=== PATIENT | female | born 1935 | race Hispanic/Latino ===

== ENCOUNTER 2017-08-29 11:06 | Observation (INO) | payer OTHER, MEDICARE ==
[~2017-08-29] VITALS: Ht 160 cm; Wt 61.0 kg
[~2017-08-29 11:06] MED LIST: AMLO5TAB2 PO; ANAS1TAB7 PO; ASPI-555 PO; CLON0.1T PO; CLOP75TA32 PO; CYAN1TAB55 SL; DOCU-116 PO; FOLI-74 PO; FURO20TA4 PO; GABA-529 PO; GLIP1TAB6 PO; HYDR12.54 PO; ISOS30TA6 PO; LABE100T PO; LISI40TA4 PO; METO50TA18 PO; NITR1PAT6 TD; OMEP40CA37 PO; PARO10TA71 PO; SIMV10TA6 PO; SULF1TAB42 PO
[2017-08-29] MEDS ORDERED: SODIUM CHLORIDE 0.9% 1000ML 1,000 ML IV ONE ×2 (11:43→23:43)
[2017-08-29 11:48] LABS: BASOPHILS % (AUTO) 0.4 % (0.0-5.0); EOSINOPHILS % (AUTO) 0.9 % (0.0-8.0); HEMATOCRIT 34.4 % (36-48); LYMPHOCYTES % (AUTO) 16.8 % (21.0-51.0); MEAN CORPUSCULAR HEMOGLOBIN 28.7 pg (27.0-33.0); MEAN CORPUSCULAR HGB CONC 33.2 g/dL (32.0-36.0); MEAN CORPUSCULAR VOLUME 86.5 fL (79-99); NEUTROPHILS % (AUTO) 74.9 % (40.0-77.0); PLATELET COUNT (AUTO) 231 K/uL (130-400); RED BLOOD CELL COUNT(AUTO) 3.98 MIL/uL (4.00-5.50); RED CELL DISTRIBUTION WIDTH 14.6 % (11.0-15.5); WHITE BLOOD COUNT (AUTO) 8.4 K/uL (4.8-10.8)
[2017-08-29 12:06] LABS: BILIRUBIN,TOTAL 0.4 mg/dL (0.2-1.0); POTASSIUM 4.8 mmol/L (3.5-5.1); TOTAL PROTEIN, SERUM 7.1 g/dL (6.0-8.3)
[2017-08-29 12:09] LABS: APPEARANCE,URINE Cloudy (CLEAR); BILIRUBIN,URINE Negative (NEGATIVE); COLOR,URINE Dark Yellow (YELLOW); GLUCOSE, URINE (UA) >=1000 mg/dL (NEGATIVE); KETONES,URINE Negative (NEGATIVE); LEUKOCYTE ESTERASE ,URINE Moderate (NEGATIVE); NITRATE,URINE Negative (NEGATIVE); OCCULT BLOOD,URINE Negative (NEGATIVE); PROTEIN,URINE Trace (NEGATIVE)
[2017-08-29 12:49] LABS: RBC,URINE 0-1 /HPF (0-1)
[2017-08-29 12:51] LABS: BACTERIA,URINE Many /HPF (None Seen); SQUAMOUS EPITHELIAL CELL,UR Rare /HPF (0-2)
[2017-08-29] MEDS ORDERED: CEFTRIAXONE SODIUM 1 GM ONE (13:12)
[2017-08-29] MEDS ORDERED: INSULIN HUMULIN R 100 UNIT/ML 3ML ONE ×2 (13:15→17:57)
[2017-08-29] MEDS ORDERED: SODIUM CHLORIDE 0.9% 0 ML IV ONE (13:15)
[2017-08-29 22:40] VITALS: BP 151/63
[2017-08-30] MEDS ORDERED: ACETAMINOPHEN 325 MG TAB PO PRN
[2017-08-30] MEDS ORDERED: POTASSIUM CHLORIDE 20 MEQ ERTAB PO PRN
[2017-08-30] MEDS ORDERED: POTASSIUM CHLORIDE 20MEQ/100ML 100 ML IV PRN
[2017-08-30] MEDS ORDERED: DEXTROSE 50%-WATER 50 ML DISP.SYRIN IV PRN
[2017-08-30] MEDS ORDERED: ONDANSETRON HCL MDV 20ML 2 MG/ML VIAL IVP PRN
[2017-08-30] MEDS ORDERED: GLUCAGON 1MG KIT 1 MG ML IM PRN
[2017-08-30] MEDS ORDERED: POTASSIUM CHLORIDE 10% ELIXIR 20 MEQ/15 ML UDCUP PO PRN
[2017-08-30] MEDS ORDERED: LIDOCAINE HCL-MPF 1% 2ML VIAL IVP PRN
[2017-08-30] MEDS ORDERED: SODIUM CHLORIDE 0.9% 1000ML 1,000 ML IV SCH (00:15)
[2017-08-30] MEDS: CEFTRIAXONE SODIUM 1 GM IVP SCH ×2 (01:00→16:29)
[2017-08-30] MEDS ORDERED: CARV25TA PO (03:43)
[2017-08-30] MEDS ORDERED: CLON0.1T PO (03:43)
[2017-08-30] MEDS ORDERED: CILO50TA PO (03:43)
[2017-08-30] MEDS ORDERED: CLON0.2T PO (03:43)
[2017-08-30] MEDS ORDERED: MONT10TA24 PO (03:43)
[2017-08-30] MEDS ORDERED: AMLO10TA2 PO (03:43)
[2017-08-30] MEDS ORDERED: LEVO25TA54 PO (03:43)
[2017-08-30 04:10] VITALS: BP 167/70
[2017-08-30] MEDS: INSULIN HUMULIN R 100 UNIT/ML 3ML SQ SCH ×3 (05:50→16:29)
[2017-08-30 05:54] LABS: HEMOGLOBIN A1C 12.2 % (4.0-6.0)
[2017-08-30 08:15] VITALS: BP 169/61
[2017-08-30 11:00] VITALS: BP 189/70
[2017-08-30] MEDS ORDERED: CEFU500T67 PO (12:47)
[2017-08-30] MEDS: GLIPIZIDE 5 MG TABLET PO SCH ×2 (13:00→16:25)
[2017-08-30] MEDS: SODIUM CHLORIDE 0.9% 1000ML 1,000 ML IV SCH ×2 (13:20)
[2017-08-30 13:21] LABS: CREATININE 1.5 mg/dL (0.5-1.5); POTASSIUM 4.3 mmol/L (3.5-5.1)
[2017-08-30 16:00] VITALS: BP 146/59
[2017-08-30] MEDS ORDERED: CILOSTAZOL 100 MG TAB PO SCH (16:30)
[2017-08-30] MEDS ORDERED: METFORMIN HCL 500 MG TABLET PO SCH (21:00)
[2017-08-30] MEDS ORDERED: CARVEDILOL 25 MG TABLET PO SCH (21:00)
[2017-08-30] MEDS ORDERED: MONTELUKAST SODIUM 10 MG TAB PO SCH (21:00)
[2017-08-30] MEDS ORDERED: CLONIDINE HCL 0.2 MG TABLET PO SCH (21:00)
[2017-08-31] MEDS ORDERED: LEVOTHYROXINE 25 MCG TABLET PO SCH (07:30)
[2017-08-31] MEDS ORDERED: ISOSORBIDE MONO 30MG TAB SR PO SCH (09:00)
[2017-08-31] MEDS ORDERED: ASPIRIN 81 MG EC TAB PO SCH (09:00)
[2017-08-31] MEDS ORDERED: CLONIDINE HCL 0.1 MG TABLET PO SCH (09:00)
[2017-08-31] MEDS ORDERED: PAROXETINE HCL 20 MG TABLET PO SCH (09:00)
[2017-08-31] MEDS ORDERED: AMLODIPINE BESYLATE 5 MG TAB PO SCH (09:00)
[2017-08-31] MEDS ORDERED: CLOPIDOGREL BISULFATE 75 MG TAB PO SCH (09:00)
[2017-08-31] MEDS ORDERED: GLIPIZIDE 5 MG TABLET PO SCH (21:00)
[2017-09-19] MEDS ORDERED: SPIR25TA4 PO (14:46)
== END 2017-08-30 18:00 | disposition home or self-care (01) ==
LOC: EDH 11:06 → EDHIP 15:00 → 4BH 21:33
PROVIDERS: ADMIT Internal Medicine; ATTEND Internal Medicine
DX: N39.0 Urinary tract infection, site not specified (principal); E11.65 Type 2 diabetes mellitus with hyperglycemia; E11.22 Type 2 diabetes mellitus with diabetic chronic kidney disease; I12.9 Hypertensive chronic kidney disease with stage 1 through stage 4 chronic kidney disease, or unspecified chronic kidney disease; N17.9 Acute kidney failure, unspecified; N18.9 Chronic kidney disease, unspecified; E87.1 Hypo-osmolality and hyponatremia; E78.5 Hyperlipidemia, unspecified; E03.9 Hypothyroidism, unspecified; I25.10 Atherosclerotic heart disease of native coronary artery without angina pectoris; Z85.3 Personal history of malignant neoplasm of breast; Z90.13 Acquired absence of bilateral breasts and nipples; Z95.1 Presence of aortocoronary bypass graft; Z82.49 Family history of ischemic heart disease and other diseases of the circulatory system; Z90.49 Acquired absence of other specified parts of digestive tract
CPT/HCPCS: 36415 ×2; 70450; 80048; 80053; 81001; 82948 ×7; 83036; 84443; 84484; 85025; 87088; 87186; 93005; 96372; 99285; A4218; G0378 ×27; J0696 ×2; J1815 ×4; J7030 ×2

== ENCOUNTER 2017-09-19 10:03 | Observation (INO) | payer OTHER, MEDICARE ==
[~2017-09-19] VITALS: Ht 157.5 cm; Wt 63.4 kg
[~2017-09-19 10:03] MED LIST changes: +AMLO10TA2 PO; -AMLO5TAB2 PO; +CARV25TA PO; +CEFU500T67 PO; +CILO50TA PO; +CLON0.2T PO; -CYAN1TAB55 SL; -DOCU-116 PO; -FOLI-74 PO; -GABA-529 PO; -HYDR12.54 PO; -LABE100T PO; +LEVO25TA54 PO; -LISI40TA4 PO; -METO50TA18 PO; +MONT10TA24 PO; -NITR1PAT6 TD; -OMEP40CA37 PO; -SIMV10TA6 PO; -SULF1TAB42 PO
[2017-09-19 10:26] LABS: BASOPHILS % (AUTO) 0.5 % (0.0-5.0); EOSINOPHILS % (AUTO) 2.3 % (0.0-8.0); HEMATOCRIT 32.4 % (36-48); LYMPHOCYTES % (AUTO) 28.9 % (21.0-51.0); MEAN CORPUSCULAR HEMOGLOBIN 28.8 pg (27.0-33.0); MEAN CORPUSCULAR VOLUME 87.1 fL (79-99); MONOCYTES % (AUTO) 5.5 % (3.0-13.0); NEUTROPHILS % (AUTO) 62.8 % (40.0-77.0); NUCLEATED RED BLOOD CELLS 0.1 % (0.0-0.19); PLATELET COUNT (AUTO) 243 K/uL (130-400); RED BLOOD CELL COUNT(AUTO) 3.72 MIL/uL (4.00-5.50); WHITE BLOOD COUNT (AUTO) 6.5 K/uL (4.8-10.8)
[2017-09-19 10:36] LABS: INR 1.06 (0.85-1.15); PARTIAL THROMBOPLASTIN TIME 26.1 SEC (26.3-35.5); PROTHROMBIN TIME 11.1 SEC (9.6-11.6)
[2017-09-19 10:56] LABS: CREATININE 1.2 mg/dL (0.5-1.5); POTASSIUM 5.5 mmol/L (3.5-5.1)
[2017-09-19 11:03] LABS: BILIRUBIN,TOTAL 0.3 mg/dL (0.2-1.0); TOTAL PROTEIN, SERUM 6.7 g/dL (6.0-8.3)
[2017-09-19] MEDS ORDERED: SODIUM CHLORIDE 0.9% 1000ML 1,000 ML IV ONE (11:19)
[2017-09-19] MEDS ORDERED: SODIUM CHLORIDE 0.9% 1000ML 1,000 ML IV SCH (12:08)
[2017-09-19] MEDS ORDERED: CEFTRIAXONE SODIUM 1 GM ONE (12:14)
[2017-09-19] MEDS ORDERED: MORPHINE SULFATE 2 MG/ML 1ML SYG IV PRN (12:15)
[2017-09-19] MEDS ORDERED: ACETAMINOPHEN-CODEINE 300/30MG TAB PO PRN (12:15)
[2017-09-19] MEDS ORDERED: POTASSIUM CHLORIDE 20 MEQ ERTAB PO PRN (12:15)
[2017-09-19] MEDS ORDERED: POTASSIUM CHLORIDE 10% ELIXIR 20 MEQ/15 ML UDCUP PO PRN (12:15)
[2017-09-19] MEDS ORDERED: MAG HYDROX/AL HYDROX/SIMETH ES 30 ML SUSP UDCUP PO PRN (12:15)
[2017-09-19] MEDS ORDERED: LACTULOSE 20 GM/30 ML UDCUP PO PRN (12:15)
[2017-09-19] MEDS ORDERED: POTASSIUM CHLORIDE 20MEQ/100ML 100 ML IV PRN (12:15)
[2017-09-19] MEDS ORDERED: LIDOCAINE HCL-MPF 1% 2ML VIAL IVP PRN (12:15)
[2017-09-19] MEDS ORDERED: ONDANSETRON HCL 4 MG/2 ML VIAL IV PRN (12:15)
[2017-09-19] MEDS ORDERED: GUAIFENESIN-DM 200/20 MG 10 ML PO PRN (12:15)
[2017-09-19] MEDS ORDERED: ACETAMINOPHEN 325 MG TAB PO PRN ×2 (12:15)
[2017-09-19] MEDS ORDERED: NITROGLYCERIN 0.4 MG SL TAB SL PRN (12:15)
[2017-09-19] MEDS ORDERED: HYDRALAZINE HCL 20 MG/ML VIAL IV PRN (12:15)
[2017-09-19 12:20] LABS: APPEARANCE,URINE Clear (CLEAR); BILIRUBIN,URINE Negative (NEGATIVE); COLOR,URINE Yellow (YELLOW); GLUCOSE, URINE (UA) Negative (NEGATIVE); KETONES,URINE Negative (NEGATIVE); LEUKOCYTE ESTERASE ,URINE Negative (NEGATIVE); NITRATE,URINE Negative (NEGATIVE); OCCULT BLOOD,URINE Negative (NEGATIVE); PROTEIN,URINE Trace (NEGATIVE); UROBILINOGEN,URINE 0.2 mg/dL (0.2-1.0)
[2017-09-19 12:33] LABS: BACTERIA,URINE None Seen /HPF (None Seen); RBC,URINE None Seen /HPF (0-1); SQUAMOUS EPITHELIAL CELL,UR Rare /HPF (0-2); WBC,URINE None Seen /HPF (0-1)
[2017-09-19 13:36] VITALS: BP 137/59
[2017-09-19 14:26] LABS: RETICULOCYTE % (AUTO) 0.93 % (0.42-2.23)
[2017-09-19 14:45] VITALS: BP 149/64
[2017-09-19] MEDS ORDERED: SPIR25TA6 PO (14:46)
[2017-09-19 14:50] VITALS: BP 121/70
[2017-09-19 14:53] VITALS: BP 120/54
[2017-09-19 14:57] LABS: % IRON SATURATION 17.9 % (22-44); FERRITIN 25 ng/mL (15-150); IRON, SERUM 53 mcg/dL (50-170); TOTAL IRON BINDING CAPACITY 295 mcg/dL (250-450)
[2017-09-19] MEDS ORDERED: COMPOUND IV MISC 1 EACH IVSOLN MISC PRN (16:15)
[2017-09-19 18:01] VITALS: BP 167/60
[2017-09-19] MEDS ORDERED: INSLAN SQ (19:11)
[2017-09-19] MEDS: IRON SUCROSE COMPLEX 100 MG in SODIUM CHLORIDE 0.9% 50 ML IV SCH (19:27)
[2017-09-19] MEDS: INSULIN HUMULIN R 100 UNIT/ML 3ML SQ SCH ×2 (19:27→20:46)
[2017-09-19 20:00] VITALS: BP 143/116
[2017-09-19] MEDS: CILOSTAZOL 100 MG TAB PO SCH (20:36)
[2017-09-19] MEDS: CARVEDILOL 25 MG TABLET PO SCH (20:36)
[2017-09-19] MEDS ORDERED: FAMOTIDINE 20MG TAB 20 MG TAB PO SCH (21:00)
[2017-09-19] MEDS ORDERED: MONTELUKAST SODIUM 10 MG TAB PO SCH (21:00)
[2017-09-20] VITALS: BP 160/80
[2017-09-20 04:00] VITALS: BP 172/60
[2017-09-20] MEDS: INSULIN HUMULIN R 100 UNIT/ML 3ML SQ SCH (06:21)
[2017-09-20] MEDS ORDERED: LEVOTHYROXINE 25 MCG TABLET PO SCH (06:30)
[2017-09-20] MEDS ORDERED: METFORMIN HCL 500 MG TABLET PO SCH (08:00)
[2017-09-20] MEDS ORDERED: GLIPIZIDE 5 MG TABLET PO SCH (08:00)
[2017-09-20 08:04] VITALS: BP 149/93
[2017-09-20 08:12] VITALS: BP 149/93
[2017-09-20] MEDS: CARVEDILOL 25 MG TABLET PO SCH (08:12)
[2017-09-20] MEDS: CILOSTAZOL 100 MG TAB PO SCH (08:12)
[2017-09-20] MEDS: IRON SUCROSE COMPLEX 100 MG in SODIUM CHLORIDE 0.9% 50 ML IV SCH (08:13)
[2017-09-20 08:17] LABS: CREATININE 1.1 mg/dL (0.5-1.5); POTASSIUM 3.7 mmol/L (3.5-5.1)
[2017-09-20] MEDS ORDERED: AMLODIPINE BESYLATE 5 MG TAB PO SCH (09:00)
[2017-09-20] MEDS ORDERED: ASPIRIN 81 MG EC TAB PO SCH (09:00)
[2017-09-20] MEDS ORDERED: Anastrozole 1 MG PO SCH (09:00)
[2017-09-20] MEDS ORDERED: PAROXETINE HCL 10 MG PO SCH (09:00)
[2017-09-20] MEDS ORDERED: CLOPIDOGREL BISULFATE 75 MG TAB PO SCH (09:00)
[2017-09-20] MEDS ORDERED: ENOXAPARIN SODIUM 30 MG/0.3 ML SQ SCH (09:00)
[2017-09-20] MEDS ORDERED: ISOSORBIDE MONO 30MG TAB SR PO SCH (09:00)
== END 2017-09-20 11:55 | disposition home or self-care (01) ==
LOC: EDH 10:03 → EDHIP 11:36 → 3CH 13:07
PROVIDERS: ADMIT Internal Medicine; ATTEND Internal Medicine
DX: E86.0 Dehydration (principal); I25.10 Atherosclerotic heart disease of native coronary artery without angina pectoris; E11.51 Type 2 diabetes mellitus with diabetic peripheral angiopathy without gangrene; E11.65 Type 2 diabetes mellitus with hyperglycemia; E03.9 Hypothyroidism, unspecified; E78.5 Hyperlipidemia, unspecified; I10 Essential (primary) hypertension; J30.2 Other seasonal allergic rhinitis; F32.9 Major depressive disorder, single episode, unspecified; Z87.440 Personal history of urinary (tract) infections; Z85.3 Personal history of malignant neoplasm of breast; Z95.1 Presence of aortocoronary bypass graft; Z90.13 Acquired absence of bilateral breasts and nipples; Z90.49 Acquired absence of other specified parts of digestive tract; Z90.710 Acquired absence of both cervix and uterus; Z82.49 Family history of ischemic heart disease and other diseases of the circulatory system
CPT/HCPCS: 36415 ×2; 71045; 80048; 80053; 81001; 82607; 82728; 82746; 82948 ×3; 83605 ×2; 84132; 84443; 84484; 85025; 85610; 85730; 87040 ×2; 87088; 93005; 96372 ×2; 96374; 96376; 97116; 97161; 99285; G0378 ×24; G8978; G8979; G8980; G8981; G8982; G8983; J0696; J1650; J1756; J1815; J7030